=== PATIENT | female | born 1980 | race Caucasian/White ===

== ENCOUNTER 2017-11-30 19:22 | Emergency (ER) | payer SELFPAY ==
[~2017-11-30] VITALS: Ht 170.2 cm; Wt 72.6 kg
[2017-11-30 19:26] VITALS: Ht 170.2 cm; Wt 72.6 kg
[2017-11-30 20:29] LABS: ALBUMIN 3.5 g/dL (3.4-5.0); ANION GAP 12.7 mmol/L (8-16); BILIRUBIN - TOTAL 0.25 mg/dL (0.2-1.3); CALCIUM 9.1 mg/dL (8.5-10.1); CARBON DIOXIDE 24.1 mmol/L (21.0-32.0); CREATININE - SERUM 1.1 mg/dL (0.6-1.3); POTASSIUM - SERUM 3.8 mmol/L (3.5-5.1); PROTEIN - SERUM 7.5 g/dL (6.4-8.2)
[2017-11-30 20:31] LABS: BASOPHILS 0.2 % (0-2); EOSINOPHILS 1.2 % (0-7); HEMATOCRIT 40.6 % (36.0-48.0); HEMOGLOBIN 14.1 g/dL (12-16); IMMATURE GRANULOCYTES 0.1 % (0-5); LYMPHOCYTES 35.8 % (15-50); MCH 30.1 pg (26.0-34.0); MCHC 34.7 g/dL (31.0-37.0); MCV 86.8 fL (80.0-100.0); MONOCYTES 8.7 % (2-11); RBC 4.68 10x6/uL (4.00-5.40); RDW 13.4 % (11.5-14.5)
[2017-11-30 20:38] LABS: THYROID STIMULATING HORMONE 1.49 uIU/mL (0.36-3.74)
[2017-11-30 20:47] LABS: MEAN PLATELET VOLUME 10.12 fL (7.4-10.4); PLATELET COUNT 179.3 10x3/uL (130-400)
[2017-11-30] MEDS ORDERED: NEURONTIN 300300 MG PO (21:09)
[2017-11-30] MEDS ORDERED: TORADOL10 MG PO (21:09)
[2017-11-30 21:36] VITALS: BP 99/52
== END 2017-11-30 21:37 | disposition home or self-care (01) ==
LOC: D.ER 19:22
PROVIDERS: Family Medicine
DX: M79.605 Pain in left leg (principal); M79.604 Pain in right leg; M54.16 Radiculopathy, lumbar region; F17.200 Nicotine dependence, unspecified, uncomplicated